=== PATIENT | female | born 2000 | race Two or more races ===

== ENCOUNTER 2020-10-26 12:42 | Emergency (ER) | payer OTHER ==
[~2020-10-26] VITALS: Ht 157.5 cm; Wt 79.4 kg
[2020-10-26 13:58] VITALS: BP 100/66
[2020-10-26] MEDS ORDERED: IBUPROFEN 800 MG TAB PO ONE (14:15)
== END 2020-10-26 14:56 | disposition home or self-care (01) ==
LOC: ER 12:42
DX: S63.502A Unspecified sprain of left wrist, initial encounter (principal); V00.131A Fall from skateboard, initial encounter; Y93.51 Activity, roller skating (inline) and skateboarding; Y92.89 Other specified places as the place of occurrence of the external cause; Y99.8 Other external cause status
CPT/HCPCS: 73110